=== PATIENT | male | born 2005 | race Two or more races ===

== ENCOUNTER 2024-06-11 21:03 | Emergency (ER) | payer BC, OTHER ==
[~2024-06-11] VITALS: Ht 157.5 cm; Wt 60.5 kg
[2024-06-11 22:42] VITALS: BP 124/93; PULSE 83; RESP 16; TEMP 98.6; O2SAT 96
== END 2024-06-11 23:32 | disposition home or self-care (01) ==
LOC: ER 21:03
DX: H61.22 Impacted cerumen, left ear (principal)
CPT/HCPCS: 69210

== ENCOUNTER 2025-04-01 22:20 | Emergency (ER) | payer BC ==
[~2025-04-01] VITALS: Ht 167.6 cm; Wt 62.5 kg
--- NOTE | 2025-04-01 22:36 | ED.PDOC ---
HPI Allergic reaction HPI Comments 19-year-old male who came to ER for allergic reaction/rashes. Patient states for the past 3-4 days he has been having diffuse, pruritic maculopapular rashes with associated throat discomfort. Denies any fever or shortness of breath. Denies any exposure to possible allergens or exposure to new foods. Chief Complaint: Rash Time Seen by MD: 22:36 Reviewed Notes: Nurses Notes Allergies: Coded Allergies: NO KNOWN ALLERGIES (Unverified , 06/11/24) Information Source: Patient Mode of Arrival: Ambulatory Severity: Moderate Rash: Moderate SOB: None Difficulty swallowing: Mild Pruritus: Moderate Timing: Days Duration: Since onset Location: Generalized Exposed to: Unknown Developed: Difficult Swallowing, Pruritus, Rash Past Medical History PAST MEDICAL HISTORY: Denies Surgical History: Denies all surgeries Family History Family History: Reviewed,noncontributory to illness Social History Smoker: Non-Smoker Alcohol: Denies ETOH Use Drugs: Denies Drug Use Lives In: Home Constitutional: denies: chills, diaphoresis, fatigue, fever, malaise, sweats, weakness, others EENTM: reports: throat pain; denies: blurred vision, double vision, ear bleeding, ear discharge, ear drainage, ear pain, ear ringing, eye pain, eye redness, hearing loss, mouth pain, mouth swelling, nasal discharge, nose bleeding, nose congestion, nose pain, photophobia, tearing, throat swelling, voice changes, others Respiratory: denies: cough, hemoptysis, orthopnea, SOB at rest, shortness of breath, SOB with excertion, stridor, wheezing, others Cardiovascular: denies: chest pain, dizzy spells, diaphoresis, Dyspnea on exertion, edema, irregular heart beat, left arm pain, lightheadedness, palpitations, PND, syncope, others Gastrointestinal: denies: abdomen distended, abdominal pain, blood streaked bowels, constipated, diarrhea, dysphagia, difficulty swallowing, hematemesis, melena, nausea, poor appetite, poor fluid intake, rectal bleeding, rectal pain, vomiting, others Genitourinary: denies: burning, dysuria, flank pain, frequency, hematuria, incontinence, penile discharge, penile sore, pain, testicle pain, testicle swelling, urgency, others Neurological: denies: dizziness, fainting, headache, left sided numbness, left sided weakness, numbness, paresthesia, pre-existing deficit, right sided numbness, right sided weakness, seizure, speech problems, tingling, tremors, weakness, others Musculoskeletal: denies: back pain, gout, joint pain, joint swelling, muscle pain, muscle stiffness, neck pain, others Integumetry: reports: rash; denies: bruises, change in color, change in hair/nails, dryness, laceration, lesions, lumps, wounds, others Allergic/Immunocompromised: reports: Hives, Itching; denies: Difficulty Healing, Frequent Infections, others Hematologic/Lymphatic: denies: anemia, blood clots, easy bleeding, easy bruising, swollen glands, others Endocrine: denies: excessive hunger, excessive sweating, excessive thirst, excessive urination, flushing, intolerance to cold, intolerance to heat, unexplained weight gain, unexplained weight loss, others Psychiatric: denies: anxiety, bipolar disorder, depression, hopeless, panic disorder, schizophrenia, sleepless, suicidal, others Physical Exam General Appearance: No Apparent Distress, Normal HEENT: Normal ENT Inspection, Pharynx Normal, TMs Normal Neck: Full Range of Motion, Non-Tender, Normal, Normal Inspection Respiratory: Chest Non-Tender, Lungs Clear, No Accessory Muscle Use, No Respiratory Distress, Normal Breath Sounds Cardiovascular: No Edema, No JVD, No Murmur, No Gallop, Normal Peripheral Pulses, Regular Rate/Rhythm Breast Exam: Deferred Gastrointestinal: No Organomegaly, Non Tender, No Pulsatile Mass, Normal Bowel Sounds, Soft Genitalia: Deferred Pelvic: Deferred Rectal: Deferred Extremities: No calf tenderness, Normal capillary refill, Normal inspection, Normal range of motion, Non-tender, No pedal edema Musculoskeletal : Apperance: Normal Neurologic: Alert, neon installer II-XII nml as Tested, No Motor Deficits, Normal Affect, Normal Mood, No Sensory Deficits Cerebellar Function: Normal Reflexes: Normal Skin: Dry, Normal Color, Rash (Diffuse pruritic maculopapular rash), Warm Lymphatic: No Adenopathy Was a procedure done? Was a procedure done?: No Differential diagnosis (all) Differential Diagnosis: Anaphylaxis, Angioedema, Drug Reaction, Urticaria, Other (Viral syndrome) X-Ray, Labs, Meds, VS Vital Signs Date Time Temp Pulse Resp B/P (MAP) Pulse Ox O2 Delivery O2 Flow Rate FiO2 04/01/25 23:03 98.8 77 16 127/68 (87) 98 98.8 Time of 1ST Reevaluation: 22:32 Reevaluation 1ST: Unchanged Patient Education/Counseling: Diagnosis, Treatment, Prognosis, Need For Follow Up Family Education/Counseling: Diagnosis, Treatment, Prognosis, Need For Follow Up SEPSIS Sepsis Screen Vital Signs Date Time Temp Pulse Resp B/P (MAP) Pulse Ox O2 Delivery O2 Flow Rate FiO2 04/01/25 23:03 98.8 77 16 127/68 (87) 98 98.8 Departure 1 Departure Time of Disposition: 23:44 Impression: Primary Impression: Allergic dermatitis Disposition: HOME / SELF CARE / HOMELESS Condition: Good e-Prescriptions Diphenhydramine Hcl (Benadryl Allergy) 25 Mg Cap 1 CAP PO Q4HP PRN for 3 Days, #30 CAP 1 Refill Prov: POLO WEISS MD 04/01/25 Prednisone (Prednisone) 20 Mg Tab 20 MG PO DAILY for 5 Days, #5 TAB Prov: POLO WEISS MD 04/01/25 Discharged With: Self, Relative Critical Care Note Critical Care Time?: No Stability Stability form required: No Heart Score Heart Score: Heart Score Response (Comments) Value History N/A 0 EKG N/A 0 Age N/A 0 Risk Factors N/A 0 Troponin N/A 0 Total 0 I personally scribed for POLO WEISS MD ([email or web address]) on 04/01/25 at 22:36. Electronically submitted by Cuauhtemoc Alfredo ([facility] POLO WEISS MD Apr 01, 2025 22:36
[2025-04-01] MEDS ORDERED: PRED20TA2 PO (23:45)
[2025-04-01] MEDS ORDERED: DIPH25CA66 PO (23:45)
[2025-04-02 01:15] VITALS: BP 115/72; PULSE 58; RESP 16; TEMP 97.7; O2SAT 96
[2025-04-02] MEDS: diphenhdrAMINE HCL 25 MG CAP PO ONE (01:20)
[2025-04-02] MEDS: DexAMETHasone SOD PHOS 4 MG/1ML SDV INJ PO ONE (01:20)
== END 2025-04-02 01:25 | disposition home or self-care (01) ==
LOC: ER 22:20
DX: L23.9 Allergic contact dermatitis, unspecified cause (principal)
CPT/HCPCS: J1100